=== PATIENT | female | born 1995 | race Caucasian/White ===

== ENCOUNTER 2017-06-01 17:33 | Inpatient (IN) | payer MEDICAID ==
[~2017-06-01] VITALS: Ht 170.2 cm; Wt 98.6 kg
[~2017-06-01 17:33] MED LIST: IMPLANON68 MG ID; LEVAQUIN 5500 MG/TA1 PO; PREDNISONE20 MG PO; VENTOLIN0.09 MG IH
[2017-07-15] MEDS ORDERED: PRENATAL1 TA7 PO (09:41)
[2017-07-15] MEDS ORDERED: NATURAL IRON65 MG (09:41)
[2017-07-15] MEDS ORDERED: TYLENOL 500MG500 MG (09:42)
[2017-07-17] VITALS (54 sets, daily range): BP systolic 98–151; BP diastolic 53–90; PULSE 85–133; TEMP 97.4–98.7
[2017-07-17 07:57] LABS: BASO # 0.1 (0.0-0.2); BASO % 0.5 % (0.0-2.0); EOS # 0.1 (0.0-0.7); EOS % 1.2 % (0-4.0); GRAN # 8.8 (1.4-6.5); GRAN % 78.2 % (42.2-75.2); LYMPH # 1.5 (1.2-3.4); LYMPH % 12.8 % (20.0-51.0); MEAN CELL VOLUME 84 fl (80.0-100.0); MEAN CORPUSCULAR HGB CONC 32 g/dl (33.0-37.0); MEAN PLATELET VOLUME 9.6 fl (7.4-10.4); MONO # 0.8 (0.1-0.6); MONO % 6.6 % (1.7-9.3); PLATELET COUNT 252 K/mm3 (130-400); RED BLOOD COUNT 3.52 M/mm3 (4.10-5.30); REDCELL DISTRIBUTION WIDTH-CV 14.5 % (11.5-14.5)
[2017-07-17 07:58] LABS: HEMATOCRIT 29.5 % (37.0-47.0); HEMOGLOBIN 9.4 g/dl (12.5-16.0); MEAN CORPUSCULAR HEMOGLOBIN 27 pg (27.0-31.0)
[2017-07-18 04:45] VITALS: BP 106/71; PULSE 85; TEMP 97.5
[2017-07-18 07:40] VITALS: BP 106/74; PULSE 89; TEMP 97.6
[2017-07-18] MEDS ORDERED: MOTRIN 800800 MG/TAB PO (08:41)
[2017-07-18] MEDS ORDERED: PERCOCET 325 MG1 TA2 PO (08:41)
[2017-07-18 12:00] VITALS: BP 107/56; PULSE 89; TEMP 97.7
[2017-07-18 20:20] VITALS: BP 123/76; PULSE 88; TEMP 97.7
[2017-07-18 22:40] VITALS: BP 108/66; PULSE 81; TEMP 97.8
[2017-07-19 08:00] VITALS: BP 113/61; PULSE 86; TEMP 98.3
== END 2017-07-19 11:30 | disposition home or self-care (01) | DRG 774 ==
LOC: LDR → OB 07-17 07:12 → LDR 07-17 14:33 → OB 07-17 22:00 → EDSTATUS 07-26 06:32 → LDRO 07-26 17:33
PROVIDERS: Obstetrics & Gynecology
PROC: 10E0XZZ Delivery of Products of Conception, External Approach (ICD-10-PCS; principal; 2017-07-17)
PROC: 3E033VJ Introduction of Other Hormone into Peripheral Vein, Percutaneous Approach (ICD-10-PCS; 2017-07-17)
PROC: 10907ZC Drainage of Amniotic Fluid, Therapeutic from Products of Conception, Via Natural or Artificial Opening (ICD-10-PCS; 2017-07-17)
DX: O66.0 Obstructed labor due to shoulder dystocia (principal); O72.1 Other immediate postpartum hemorrhage; Z3A.39 39 weeks gestation of pregnancy; Z37.0 Single live birth
CPT/HCPCS: J2210; J2590; J2795; J7120

== ENCOUNTER 2017-07-15 09:04 | Outpatient (CLI) | payer BC, MEDICAID ==
[~2017-07-15] VITALS: Ht 170.2 cm; Wt 97.5 kg
[2017-07-15] MEDS ORDERED: NATURAL IRON65 MG (09:41)
[2017-07-15] MEDS ORDERED: PRENATAL1 TA7 PO (09:41)
[2017-07-15] MEDS ORDERED: TYLENOL 500MG500 MG (09:42)
== END 2017-07-15 10:10 | disposition home or self-care (01) ==
LOC: LDRO 09:04
DX: Z34.83 Encounter for supervision of other normal pregnancy, third trimester (principal); Z3A.40 40 weeks gestation of pregnancy

== ENCOUNTER 2019-06-20 13:23 | Inpatient (IN) | payer BC ==
[2019-06-20] VITALS (8 sets, daily range): BP systolic 102–124; BP diastolic 60–90; PULSE 76–107; TEMP 98.1
[~2019-06-20 13:23] MED LIST changes: +MOTRIN 800800 MG/TAB PO; +NATURAL IRON65 MG; +PERCOCET 325 MG1 TA2 PO; +PRENATAL1 TA7 PO; +TYLENOL 500MG500 MG
[2019-06-20 13:43] LABS: BASO # 0.1 (0.0-0.2); BASO % 0.9 % (0.0-2.0); EOS # 0.2 (0.0-0.7); EOS % 1.8 % (0-4.0); GRAN # 8.2 (1.4-6.5); GRAN % 70.8 % (42.2-75.2); LYMPH # 2.3 (1.2-3.4); LYMPH % 19.6 % (20.0-51.0); MEAN CELL VOLUME 90 fl (80.0-100.0); MEAN CORPUSCULAR HEMOGLOBIN 31 pg (27.0-31.0); MEAN CORPUSCULAR HGB CONC 34 g/dl (33.0-37.0); MEAN PLATELET VOLUME 9.8 fl (7.4-10.4); MONO # 0.8 (0.1-0.6); MONO % 6.6 % (1.7-9.3); PLATELET COUNT 347 K/mm3 (130-400)
[2019-06-20 13:49] LABS: PROTHROMBIN TIME 11.6 SECONDS (9.7-12.8)
[2019-06-20 13:57] LABS: ALBUMIN 4.1 gm/dL (3.5-5.0); BILIRUBIN,TOTAL 0.4 mg/dL (0.0-1.0); CALCIUM 9.3 mg/dL (8.4-10.2); CREATININE, serum 0.84 (0.52-1.25); POTASSIUM 3.7 mmol/L (3.4-5.0); TOTAL PROTEIN 6.9 gm/dL (6.4-8.2)
[2019-06-20 15:18] LABS: HEMOGLOBIN 10.2 g/dl (12.5-16.0)
[2019-06-20 15:19] LABS: HEMATOCRIT 29.6 % (37.0-47.0)
--- NOTE | 2019-06-20 15:34 | NUR ---
1505 PATIENT TO ROOM FROM OR. ALERT AND ORIENT X3. BLEEDING MINIMAL. VS WNL. DR BHATTI AT BEDSIDE. 1530 [address]GB [address] BHATTI. NO NEW ORDERS.
--- NOTE | 2019-06-20 16:40 | NUR ---
PATIENT UP TO BATHROOM. MINIMAL BLEEDING NOTED. VS WNL. VOIDS WITHOUT DIFFICULTY. NO DIZZINESS NOTED.
--- NOTE | 2019-06-20 17:32 | NUR ---
SITS UP IN BED EATING SUPPER. TOLERATES WELL. UP TO BATHROOM GETS DRESSED. MINIMAL BLEEDING NOTED. NO DIIZZINESS NOTED. IV TIMES 2 DC'D AND ALL DISCHARGE INSTRUCTIONS GIVEN TO PATIENT AND . DENIES NEEDS. VERBAL UNDERSTANDING NOTED.
--- NOTE | 2019-06-20 17:55 | NUR ---
1750 patient dismissed to pov via wheelchair. at side. denies needs or questions at this time
== END 2019-06-20 17:50 | disposition home or self-care (01) | DRG 779 ==
LOC: COL.ER 13:23 → OB 14:14 → COL.ER 14:20 → OB 17:50
PROVIDERS: Emergency Medicine; ADMIT Obstetrics & Gynecology
PROC: 10D17Z9 Manual Extraction of Products of Conception, Retained, Via Natural or Artificial Opening (ICD-10-PCS; principal; 2019-06-20 15:00)
DX: O03.1 Delayed or excessive hemorrhage following incomplete spontaneous abortion (principal)
CPT/HCPCS: J2250; J2405; J2704; J3010; J7030

== ENCOUNTER → 2020-05-23 | Outpatient (CLI) | payer BC ==
[~2020-05-23] MED LIST changes: +FLAGYL 250250 MG/TAB PO; +PRENATAL VITAMI1 TA3 PO
== END ==
LOC: DIA.ED 00:45
DX: O24.419 Gestational diabetes mellitus in pregnancy, unspecified control (principal)
CPT/HCPCS: G0108

== ENCOUNTER 2020-07-07 23:39 | Outpatient (CLI) | payer BC ==
[~2020-07-07] VITALS: Ht 170.2 cm; Wt 110.0 kg
[~2020-07-07 23:39] MED LIST changes: -FLAGYL 250250 MG/TAB PO; -PRENATAL VITAMI1 TA3 PO
--- NOTE | 2020-07-07 23:42 | NUR ---
234- PT PRESENTS TO LDR COMPLAINING OF CONTRACTIONS, AMBULATORY TO ROOM LR5, CHANGED INTO GOWN. 2347- EFM X2 APPLIED. PT DENIES VAGINAL LEAKING OR BLEEDING. STATES SHE HAS BEEN DEB FOR ABOUT 2 HOURS. STATES SHE IS FEELING BABY MOVE. PLAN OF CARE FOR LABOR CHECK DISCUSSED AND PT VERBALIZES UNDERSTANDING. 2350- SVE BY THIS NURSE 1-. DISCUSSED PLAN TO OBSERVE TRACING FOR AN HOUR AND RECHECK CERVIX. PT AGREEABLE WITH THIS PLAN. 235- NURSING ADMISSION HISTORY AND ASSESSMENT COMPLETE. ORAL HYDRATION PROVIDED. 0050- PT REPORTS THAT HER CONTRACTIONS ARE ABOUT THE SAME, MAYBE A LITTLE STRONGER. SVE BY THIS NURSE WITHOUT CHANGE. DISCUSSED DISMISSAL TO HOME AND PT IS AGREEABLE WITH THIS PLAN. PT OFF MONITORS. 0052-DR FLORES CALLED AND UPDATED CHARTED, ORDERS RECEIVED FOR DISMISSAL. 0110- DISMISSAL INSTRUCTIONS GIVEN AND PT VERBALIZES UNDERSTANDING. PT DISMISSED TO HOME AMBULATORY ACCOMPANIED BY .
[2020-07-08] MEDS ORDERED: PRENATAL VITAMI1 TA3 PO (00:07)
[2020-07-08] MEDS ORDERED: NATURAL IRON65 MG (00:08)
[2020-07-08] MEDS ORDERED: FLAGYL 250250 MG/TAB PO (00:08)
[2020-07-08 00:15] VITALS: BP 129/75; PULSE 117; TEMP 98.4
== END 2020-07-08 01:10 | disposition home or self-care (01) ==
LOC: LDRO 23:39 → LDR 23:39 → LDRO 07-08 01:10
DX: O62.9 Abnormality of forces of labor, unspecified (principal); Z3A.36 36 weeks gestation of pregnancy
CPT/HCPCS: OP

== ENCOUNTER 2020-07-16 20:41 | Outpatient (CLI) | payer BC ==
[~2020-07-16] VITALS: Ht 170.2 cm; Wt 111.8 kg
[~2020-07-16 20:41] MED LIST changes: +FLAGYL 250250 MG/TAB PO; +PRENATAL VITAMI1 TA3 PO
--- NOTE | 2020-07-16 20:50 | NUR ---
G4L2 at 38 weeks arrives to unit with complaint of leakage of fluid. Pt reports she was recently diagnosed with a yeast infection and was to start Monistat tonight but has had more leaking than normal. States the discharge is cloudy in appearance. Denies contractions or bleeding. Reports good movement. Clean gown on. Pt oriented to room, call light within reach, bed in low and locked position. US and toco explained and applied. Plan of care reviewed. Amnitrace NEGATIVE. SVE /-, membranes felt on exam. White, cloudy discharge on exam glove consistent with yeast. Vital signs obtained. Admission assessment started.
[2020-07-16 21:00] VITALS: BP 139/71; PULSE 114; TEMP 98.9
--- NOTE | 2020-07-16 21:30 | NUR ---
Reviewed discharge instructions with patient, patient verbalized understanding. Pt seen ambulating off unit with spouse.
== END 2020-07-16 21:30 | disposition home or self-care (01) ==
LOC: LDRO 20:41 → LDR 20:45 → LDRO 21:30
DX: O42.92 Full-term premature rupture of membranes, unspecified as to length of time between rupture and onset of labor (principal); Z3A.38 38 weeks gestation of pregnancy
CPT/HCPCS: OP

== ENCOUNTER 2020-07-26 11:38 | Inpatient (IN) | payer BC ==
[2020-07-26] VITALS (51 sets, daily range): BP systolic 88–143; BP diastolic 51–84; PULSE 80–131; TEMP 97.7–98.6
[~2020-07-26] VITALS: Ht 170.2 cm; Wt 111.8 kg
--- NOTE | 2020-07-26 11:55 | NUR ---
Patient ambulatory to LR5 with spouse, changed into gown, FHR/TOCO monitors. Patient denies any regular contractions/leaking of fluid/vaginal bleeding/decreased fetak movement. Plan of care discussed and pitocin/AROM induction discussed and patient agrees with plan. Consents done and assessment completed, packet gone over. 1200: IV started in right hand, blood obtaind and to lab, LR infusing. 1205: Dr. El at bedside and assessing patient and FHR monitor. SVE-2/50/-2 and AROM at this time with clear fluid noted. Plan of care discussed and questions answered. 1248: FHR monitor intermittently tracing maternal heart rate. Monitor adjusted.
[2020-07-26 12:51] LABS: BASO # 0.1 (0.0-0.2); BASO % 0.4 % (0.0-2.0); EOS # 0.1 (0.0-0.7); EOS % 0.9 % (0-4.0); GRAN # 10.9 (1.4-6.5); LYMPH # 1.6 (1.2-3.4); LYMPH % 11.3 % (20.0-51.0); MEAN CELL VOLUME 75 fl (80.0-100.0); MEAN CORPUSCULAR HGB CONC 30 g/dl (33.0-37.0); MEAN PLATELET VOLUME 9.7 fl (7.4-10.4); MONO % 7.3 % (1.7-9.3); PLATELET COUNT 314 K/mm3 (130-400); RED BLOOD COUNT 4.13 M/mm3 (4.10-5.30); REDCELL DISTRIBUTION WIDTH-CV 16.5 % (11.5-14.5)
[2020-07-26 12:52] LABS: HEMATOCRIT 30.9 % (37.0-47.0); HEMOGLOBIN 9.4 g/dl (12.5-16.0); MEAN CORPUSCULAR HEMOGLOBIN 23 pg (27.0-31.0)
--- NOTE | 2020-07-26 13:30 | NUR ---
Patient sitting on birthing ball at this time. 1400: Difficulty tracing FHR due to maternal position on ball. Monitor adjusted. Patient requested epidrual and Kenzie Alvarez [employer]ATION DIRECTOR notified. 1415: Patient sitting up on edge of bed and Kenzie Alvarez CRNA at bedside. Difficulty tracing FHR due to maternal position. 1422: Single dose given and patient tolerates well. 1430: Patient repositioned and safety precautions/plan of care discussed. Blood pressures trending down and LR bolus continues. 1454: Patient symptomatic and ephedrine 10mg given IV. See vital signs. Patient wedged right and states feeling better. 1530: [place] catheter placed and SVE- 4/60/-2 and patient left lateral with peanut ball in place.
--- NOTE | 2020-07-26 17:10 | NUR ---
Dr. El at bedside and assessing patient and FHR monitor. SVE-4/60/-2 and IUPC placed at this time. Plan of care discussed. Patient sitting in jackie position. 1730: Recurrent late decelerations noted and patient left lateral wiht right leg resting in stirrup. FHR monitor tracing and montitor adjusted.
--- NOTE | 2020-07-26 18:30 | NUR ---
Report received, care assumed. Recurrent late decelerations noted in FHR. Moderate variability and accelerations throughout tracing. Patient turned to right side with peanut ball placed between legs. Plan of care reviewed.
--- NOTE | 2020-07-26 20:20 | NUR ---
Patient continues to feel increased vaginal pressure. SVE - complete/+1. Patient prepped for pushing and Dr. El notified.
--- NOTE | 2020-07-26 20:40 | NUR ---
2039 - Patient pushing with contractions. 2044 - Dr. El to room, patient prepped for delivery, continues to push with contractions. 2051 - Spontaneous vaginal delivery of viable female by Dr. El. Cord clamped and cut and to the care of Micah core nursery RN. 2054 - Spontaneous delivery of placenta by Dr. El. Pitocin infusing at 333ml/hr per orders and protocol. Fundus firms with massage, lochia WNL. Perineum intact.
[2020-07-27 04:45] VITALS: BP 120/58; PULSE 84; TEMP 98
[2020-07-27] MEDS ORDERED: MOTRIN 800800 MG/TAB PO (04:59)
[2020-07-27 08:00] VITALS: BP 134/68; PULSE 92; TEMP 97.2
[2020-07-27 11:55] VITALS: BP 124/65; PULSE 70; TEMP 98
[2020-07-27 17:13] VITALS: BP 114/73; PULSE 83; TEMP 98
[2020-07-27 19:15] VITALS: BP 124/73; PULSE 77; TEMP 98.4
[2020-07-28 07:15] VITALS: BP 128/65; PULSE 80; TEMP 97.9
== END 2020-07-28 09:50 | disposition home or self-care (01) | DRG 807 ==
LOC: LDR 11:38 → OB 23:04
PROVIDERS: ADMIT Obstetrics & Gynecology
PROC: 10E0XZZ Delivery of Products of Conception, External Approach (ICD-10-PCS; principal; 2020-07-26)
PROC: 10907ZC Drainage of Amniotic Fluid, Therapeutic from Products of Conception, Via Natural or Artificial Opening (ICD-10-PCS; 2020-07-26)
DX: O99.52 Diseases of the respiratory system complicating childbirth (principal); Z37.0 Single live birth; J45.909 Unspecified asthma, uncomplicated; O99.02 Anemia complicating childbirth; D64.9 Anemia, unspecified; O24.420 Gestational diabetes mellitus in childbirth, diet controlled; Z3A.39 39 weeks gestation of pregnancy
CPT/HCPCS: J2590; J2795; J7120

== ENCOUNTER 2022-02-21 14:46 | Outpatient (CLI) | payer MEDICAID ==
[~2022-02-21] VITALS: Ht 170.2 cm; Wt 107.7 kg
[2022-02-21 15:17] VITALS: BP 114/74; PULSE 100
--- NOTE | 2022-02-21 15:49 | NUR ---
Pt and spouse arrive ambulatory on unit at 1450 for reports of decreased movement. Pt changed into gown, EFM explained and placed. Pt reports contractions frequently prior to getting into car, denies leaking of fluid or vaginal bleeding. Pt states she was checked 2 weeks ago and was 1cm. 1514 - SVE 1/thick/high. Moderate variability with good accelerations and no decelerations noted. Dr. Whaley on unit, reviewed FHR strip. SVE reported to physician, discharge orders obtained. 1517 - Pt taken off monitors. 1545 - Discharge instructions discussed with pt, education for discomforts of and early labor provided. Pt instructed to return to hospital for any vaginal bleeding, leaking of fluid, regular contractions, or changes in baby's movements. Pt verbalized understanding. 1550 - Pt and spouse left unit ambulatory.
[2022-03-05] MEDS ORDERED: ATARAX50 MG PO (06:56)
[2022-03-05] MEDS ORDERED: NATURAL IRON65 MG (06:57)
[2022-03-06] MEDS ORDERED: MOTRIN 800800 MG/TAB PO (08:28)
[2022-04-21] MEDS ORDERED: AMOXICILLIN 8751 TAB PO (18:38)
[2022-04-21] MEDS ORDERED: PREDNISONE20 MG PO (18:38)
== END 2022-02-21 16:01 | disposition home or self-care (01) ==
LOC: LDRO 14:46
DX: O36.8130 Decreased fetal movements, third trimester, not applicable or unspecified (principal); O47.1 False labor at or after 37 completed weeks of gestation; Z3A.37 37 weeks gestation of pregnancy